=== PATIENT | female | born 1980 | race Two or more races ===

== ENCOUNTER 2020-12-29 15:31 | Emergency (ER) | payer MEDICAID ==
--- NOTE | 2020-12-29 17:14 | EDM.PDOC ---
ED HPI GENERAL MEDICAL PROBLEM - General Chief Complaint: Respiratory Problem Stated Complaint: FEVER Time Seen by Provider: 12/29/20 16:55 Source of Information: Reports: Patient History Limitations: Reports: No Limitations (e) - History of Present Illness INITIAL COMMENTS - FREE TEXT/NARRATIVE: Ms. Chavez is a very pleasant 40-year-old woman who now presents the ED stating that she developed a fever, generalized body aches, a nonproductive cough, and a headache yesterday afternoon. Her T-max has been 102.7, and her headache has been coming and going. She has had slight nausea and vomited once last night. She states that she has been alternating Tylenol and ibuprofen, and when that did not work to reduce her fever, she took a cool bath. Here in the ED, the patient's initial BP is found to be slightly elevated at 137/91, with tachycardia of 124 bpm. She is afebrile, saturating 100% on room air. She appears to be comfortable, in no acute distress. Prior to yesterday afternoon, the patient denies having a recent fever, chills, sore throat, ear pain, nasal or sinus congestion, cough, dyspnea, chest pain, palpitations, nausea, vomiting, constipation, diarrhea, abdominal pain, urinary symptoms, recent weight gain or weight loss, recent bloody bowel movements or black bowel movements, recent joint aches, headaches, or rashes. The patient's PCP is Soraida Arora NP, in [place]. She has not received a COVID vaccination. Generalized Pain Score (Numeric/FACES): 6 - Related Data Allergies Allergy/AdvReac Type Severity Reaction Status Date / Time No Known Allergies Allergy Verified 12/29/20 16:26 Home Meds: Home Meds . 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: Reports: Polycystic Ovaries Endocrine/Metabolic History: Reports: Hypothyroidism (untreated), Obesity/BMI 30+ - Past Surgical History Female Surgical History: Reports: Section (x 1), Other (See Below) (Left ovarian cystectomy) Oncologic Surgical History: Reports: Biopsy of Breast (left, benign) Dermatological Surgical History: Reports: Other (See Below) (Lipoma excision left flank) Social & Family History - Tobacco Use Tobacco Use Status *Q: Never Tobacco User - Alcohol Use Alcohol Use History: No - Recreational Drug Use Recreational Drug Use: No - Living Situation & Occupation Living situation: Reports: , with Significant Other (Boyfriend), with Family (Daughter) 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 ED EXAM, GENERAL - Physical Exam Exam: See Below Exam Limited By: No Limitations General Appearance: Alert, WD/WN, No Apparent Distress Eye Exam: Bilateral Eye: EOMI, Normal Inspection Ears: Normal External Exam, Hearing Grossly Normal Nose: Normal Inspection Throat/Mouth: Normal Inspection, Normal Lips, Normal Voice, No Airway Compromise Head: Atraumatic, Normocephalic Neck: Normal Inspection, Full Range of Motion Respiratory/Chest: No Respiratory Distress, Lungs Clear, Normal Breath Sounds, No Accessory Muscle Use. No: Decreased Breath Sounds, Crackles, Rhonchi, Wheezing, Stridor, Prolonged Expiration Cardiovascular: Normal Peripheral Pulses, Regular Rate, Rhythm, No Edema, No Gallop, No JVD, No Murmur, No Rub Peripheral Pulses: 3+: Radial (L), Radial (R) GI/Abdominal: Normal Bowel Sounds, Soft, Non-Tender, No Organomegaly, No Distention, No Abnormal Bruit, No Mass Back Exam: Normal Inspection, Full Range of Motion, NT Extremities: Normal Inspection, Normal Range of Motion, No Pedal Edema, Normal Capillary Refill Neurological: Alert, Oriented, Normal Cognition, No Motor/Sensory Deficits Psychiatric: Normal Affect Skin Exam: Warm, Dry, Intact, Normal Color, No Rash Course - Vital Signs Last Recorded V/S: Last Vital Signs Temp 36.9 C 12/29/20 16:31 Pulse 124 H 12/29/20 16:31 Resp BP 137/91 H 12/29/20 16:31 Pulse Ox 100 12/29/20 16:31 - Orders/Labs/Meds Orders: Active Orders 24 hr Category Date Time Status Vital Signs [RC] Q15M Care 12/29/20 18:36 Active Vital Signs [RC] Q15M Care 12/29/20 19:01 Active Chest 1V Frontal [CR] Stat Exams 12/29/20 17:08 Taken INFLUENZA A+B AG SCREEN [RM] Stat Lab 12/29/20 17:07 Ordered EPINEPHrine [Adrenalin] Med 12/29/20 18:36 Active 0.3 mg IM ASDIRECTED PRN EPINEPHrine [Adrenalin] Med 12/29/20 19:01 Active 0.3 mg IM ASDIRECTED PRN Famotidine [Pepcid] Med 12/29/20 18:36 Active 20 mg IVPUSH ASDIRECTED PRN Famotidine [Pepcid] Med 12/29/20 19:01 Active 20 mg IVPUSH ASDIRECTED PRN Sodium Chloride 0.9% [Saline Flush] Med 12/29/20 18:45 Active 30 ml FLUSH ASDIRECTED Sodium Chloride 0.9% [Saline Flush] Med 12/29/20 19:15 Active 30 ml FLUSH ASDIRECTED diphenhydrAMINE [Benadryl] Med 12/29/20 18:36 Active 50 mg IVPUSH ASDIRECTED PRN diphenhydrAMINE [Benadryl] Med 12/29/20 19:01 Active 50 mg IVPUSH ASDIRECTED PRN methylPREDNISolone Sod Succ [Solu-MEDROL] Med 12/29/20 18:36 Active 125 mg IVPUSH ASDIRECTED PRN methylPREDNISolone Sod Succ [Solu-MEDROL] Med 12/29/20 19:01 Active 125 mg IVPUSH ASDIRECTED PRN Isolation [COMM] Routine Oth 12/29/20 17:07 Ordered Medication Orders Diphenhydramine HCl (Diphenhydramine 50 Mg/Ml Sdv) 50 mg IVPUSH ASDIRECTED PRN PRN Reason: hypersensitivity reaction Diphenhydramine HCl (Diphenhydramine 50 Mg/Ml Sdv) 50 mg IVPUSH ASDIRECTED PRN PRN Reason: hypersensitivity reaction Epinephrine HCl (Epinephrine 1 Mg/Ml Sdv) 0.3 mg IM ASDIRECTED PRN PRN Reason: hypersensitivity reaction Epinephrine HCl (Epinephrine 1 Mg/Ml Sdv) 0.3 mg IM ASDIRECTED PRN PRN Reason: hypersensitivity reaction Famotidine (Famotidine 20 Mg/2 Ml Sdv) 20 mg IVPUSH ASDIRECTED PRN PRN Reason: hypersensitivity reaction Famotidine (Famotidine 20 Mg/2 Ml Sdv) 20 mg IVPUSH ASDIRECTED PRN PRN Reason: hypersensitivity reaction Methylprednisolone Sodium Succinate (Methylprednisolone Sodium Succinate 125 Mg/2 Ml Sdv) 125 mg IVPUSH ASDIRECTED PRN PRN Reason: hypersensitivity reaction Methylprednisolone Sodium Succinate (Methylprednisolone Sodium Succinate 125 Mg/2 Ml Sdv) 125 mg IVPUSH ASDIRECTED PRN PRN Reason: hypersensitivity reaction Sodium Chloride (Sodium Chloride 0.9% 10 Ml Syringe) 30 ml FLUSH ASDIRECTED ALEX Sodium Chloride (Sodium Chloride 0.9% 10 Ml Syringe) 30 ml FLUSH ASDIRECTED ALEX Labs: Laboratory Tests 12/29/20 12/29/20 12/29/20 Range/Units 16:30 17:32 17:32 WBC 4.43 (3.98-10.04) K/mm3 RBC 4.60 (3.98-5.22) M/mm3 Hgb 12.0 (11.2-15.7) gm/dl Hct 37.9 (34.1-44.9) % MCV 82.4 (79.4-94.8) fl MCH 26.1 (25.6-32.2) pg MCHC 31.7 L (32.2-35.5) g/dl RDW Std Deviation 39.5 (36.4-46.3) fL Plt Count 198 (182-369) K/mm3 MPV 10.4 (9.4-12.3) fl Neutrophils % (Manual) 86 H (40-60) % Band Neutrophils % 0 (0-10) % Lymphocytes % (Manual) 12 L (20-40) % Atypical Lymphs % 0 % Monocytes % (Manual) 2 (2-10) % Eosinophils % (Manual) 0 L (0.7-5.8) % Basophils % (Manual) 0 L (0.1-1.2) Platelet Estimate Adequate RBC Morph Comment Normal Sodium 140 (136-145) mEq/L Potassium 3.7 (3.5-5.1) mEq/L Chloride 104 (98-107) mEq/L Carbon Dioxide 24 (21-32) mEq/L Anion Gap 15.7 H (5-15) BUN 8 (7-18) mg/dL Creatinine 1.1 H (0.55-1.02) mg/dL Est Cr Clr Drug Dosing 64.92 mL/min Estimated GFR (MDRD) 56 (>60) mL/min BUN/Creatinine Ratio 7.3 L (14-18) Glucose 95 (70-99) mg/dL Calcium 8.4 L (8.5-10.1) mg/dL Total Bilirubin 0.3 (0.2-1.0) mg/dL AST 38 H (15-37) U/L ALT 25 (14-59) U/L Alkaline Phosphatase 55 (46-116) U/L C-Reactive Protein 3.0 H* (<1.0) mg/dL Total Protein 7.4 (6.4-8.2) g/dl Albumin 3.3 L (3.4-5.0) g/dl Globulin 4.1 gm/dL Albumin/Globulin Ratio 0.8 L (1-2) SARS-CoV-2 RNA (CATHI) Positive H (NEGATIVE) Meds: Medications Generic Name Dose Route Start Last Admin Trade Name Freq PRN Reason Stop Dose Admin Diphenhydramine HCl 50 mg 12/29/20 18:36 Diphenhydramine 50 Mg/Ml Sdv IVPUSH ASDIRECTED PRN hypersensitivity reaction Diphenhydramine HCl 50 mg 12/29/20 19:01 Diphenhydramine 50 Mg/Ml Sdv IVPUSH ASDIRECTED PRN hypersensitivity reaction Epinephrine HCl 0.3 mg 12/29/20 18:36 Epinephrine 1 Mg/Ml Sdv IM ASDIRECTED PRN hypersensitivity reaction Epinephrine HCl 0.3 mg 12/29/20 19:01 Epinephrine 1 Mg/Ml Sdv IM ASDIRECTED PRN hypersensitivity reaction Famotidine 20 mg 12/29/20 18:36 Famotidine 20 Mg/2 Ml Sdv IVPUSH ASDIRECTED PRN hypersensitivity reaction Famotidine 20 mg 12/29/20 19:01 Famotidine 20 Mg/2 Ml Sdv IVPUSH ASDIRECTED PRN hypersensitivity reaction Methylprednisolone Sodium Succinate 125 mg 12/29/20 18:36 Methylprednisolone Sodium Succinate 125 Mg/2 Ml Sdv IVPUSH ASDIRECTED PRN hypersensitivity reaction Methylprednisolone Sodium Succinate 125 mg 12/29/20 19:01 Methylprednisolone Sodium Succinate 125 Mg/2 Ml Sdv IVPUSH ASDIRECTED PRN hypersensitivity reaction Sodium Chloride 30 ml 12/29/20 18:45 Sodium Chloride 0.9% 10 Ml Syringe FLUSH ASDIRECTED ALEX Sodium Chloride 30 ml 12/29/20 19:15 Sodium Chloride 0.9% 10 Ml Syringe FLUSH ASDIRECTED ALEX Discontinued Medications Generic Name Dose Route Start Last Admin Trade Name Jeremy PRN Reason Stop Dose Admin Sodium Chloride 1,000 mls @ 999 mls/hr 12/29/20 17:44 12/29/20 17:50 Normal Saline IV 12/29/20 18:44 999 mls/hr ONETIME ONE Administration CASIRIVIMAB/IMDEVIMAB 10 ml/ 110 mls @ 220 mls/hr 12/29/20 18:36 12/29/20 20:04 Sodium Chloride IV 12/29/20 19:05 Not Given ONETIME ONE SOTROVIMAB 500 mg/ Sodium 108 mls @ 216 mls/hr 12/29/20 19:01 12/29/20 19:26 Chloride IV 12/29/20 19:30 216 mls/hr ONETIME ONE Administration - Re-Assessments/Exams Free Text/Narrative Re-Assessment/Exam: 12/29/20 17:08 A swab for the SARS-CoV-2 virus was obtained at triage. I have added an influenza A + B virus, along with a CBC, CMP, CRP, and chest x-ray. 12/29/20 18:26 Two-view chest radiograph appears to be grossly normal. The cardiac silhouette is within normal limits. No pulmonary vascular congestion. No pleural effusions. No focal infiltrate. No pneumothorax. Formal read per the Radiologist pending. 12/29/20 18:37 The patient's CBC is unremarkable. Her CMP is unremarkable. Her CRP is modestly elevated at 3.0. Her swab for the SARS-CoV-2 virus is positive. Her swab for influenza A + B viruses did not resolve. Based on the patient's BMI, she is a candidate for an infusion of the monoclonal antibody Regen-Cov. We discussed that at length, including that it is an emergency use authorization medication intended to decrease the likelihood of patients diagnosed with COVID-19 from developing severe symptoms or , and that it does not treat her current symptoms. I explained that Regen-Cov is still under investigation, that it is not fully FDA approved, and that the potential benefits and risks of the medication are not fully known. The patient was notified that if she receives Regen-Cov, that it may decrease her immune response to a COVID vaccination, should she decide to get it after she recovers from her current illness. I explained that there is a possibility that she could have an allergic reaction either during or after the infusion, as well as brief pain, bleeding, bruising of the skin, soreness, swelling, and possible infection at the infusion site. Other side effects could occur. I discussed that there are other potential treatment options that are currently not FDA approved to treat COVID-19. The patient was notified that the infusion takes about half an hour, after which she would be expected to remain in the ED for another hour to observe for possible side effects. She was offered the "Patient and caregiver [facility] Regen-Cov fact sheet" to read and review. All questions were answered. The patient expressed understanding, and would like to proceed with the infusion. 12/29/20 20:13 The patient received her infusion of Regen-Cov without incident. She still needs to wait about 40 minutes before she can be discharged home. I will prepare her discharge instructions now. Departure - Departure Time of Disposition: 20:55 Disposition: Home, Self-Care 01 Condition: Good Clinical Impression: COVID-19 - Discharge Information *PRESCRIPTION DRUG MONITORING PROGRAM REVIEWED*: Not Applicable *COPY OF PRESCRIPTION DRUG MONITORING REPORT IN PATIENT MICHAEL: Not Applicable Referrals: Soraida Arora NP [Ordering Only Provider] - Forms: ED Department Discharge Additional Instructions: You were seen in the emergency room after developing a fever, generalized body aches, a dry cough, a headache, and some nausea with slight vomiting. Work-up in the ER included several blood tests, a swab for the SARS-CoV-2 virus, and a chest x-ray. Your swab for the SARS-CoV-2 virus returned positive, indicating that you have COVID-19. Your CRP, a measure of inflammation, returned mildly elevated at 3.0, which is a good prognostic indicator that you will not likely suffer severe symptoms from COVID-19. You were treated with an infusion of the monoclonal antibody Regen-Cov (Regeneron) in the ER. This decreases the chance of your developing severe consequences from COVID-19. Stay adequately hydrated. You may take [id number] ibuprofen as needed for discomfort. As discussed, it is imperative that you strictly isolate until you tested negative for the virus. On average, that takes 10 days. We recommend that you get retested for the SARS-CoV-2 virus on 01/08/2021. If any other problems, please do not hesitate to return to the ER. Sepsis Event Note (ED) - Focused Exam Vital Signs: Vital Signs Temp Pulse BP Pulse Ox 12/29/20 16:31 36.9 C 124 H 137/91 H 100 - My Orders Last 24 Hours: My Active Orders 12/29/20 17:07 INFLUENZA A+B AG SCREEN [RM] Stat Isolation [COMM] Routine 12/29/20 17:08 Chest 1V Frontal [CR] Stat 12/29/20 18:36 Vital Signs [RC] Q15M EPINEPHrine [Adrenalin] 0.3 mg IM ASDIRECTED PRN Famotidine [Pepcid] 20 mg IVPUSH ASDIRECTED PRN diphenhydrAMINE [Benadryl] 50 mg IVPUSH ASDIRECTED PRN methylPREDNISolone Sod Succ [Solu-MEDROL] 125 mg IVPUSH ASDIRECTED PRN 12/29/20 18:45 Sodium Chloride 0.9% [Saline Flush] 30 ml FLUSH ASDIRECTED 12/29/20 19:01 Vital Signs [RC] Q15M EPINEPHrine [Adrenalin] 0.3 mg IM ASDIRECTED PRN Famotidine [Pepcid] 20 mg IVPUSH ASDIRECTED PRN diphenhydrAMINE [Benadryl] 50 mg IVPUSH ASDIRECTED PRN methylPREDNISolone Sod Succ [Solu-MEDROL] 125 mg IVPUSH ASDIRECTED PRN 12/29/20 19:15 Sodium Chloride 0.9% [Saline Flush] 30 ml FLUSH ASDIRECTED - Assessment/Plan Last 24 Hours: My Active Orders 12/29/20 17:07 INFLUENZA A+B AG SCREEN [RM] Stat Isolation [COMM] Routine 12/29/20 17:08 Chest 1V Frontal [CR] Stat 12/29/20 18:36 Vital Signs [RC] Q15M EPINEPHrine [Adrenalin] 0.3 mg IM ASDIRECTED PRN Famotidine [Pepcid] 20 mg IVPUSH ASDIRECTED PRN diphenhydrAMINE [Benadryl] 50 mg IVPUSH ASDIRECTED PRN methylPREDNISolone Sod Succ [Solu-MEDROL] 125 mg IVPUSH ASDIRECTED PRN 12/29/20 18:45 Sodium Chloride 0.9% [Saline Flush] 30 ml FLUSH ASDIRECTED 12/29/20 19:01 Vital Signs [RC] Q15M EPINEPHrine [Adrenalin] 0.3 mg IM ASDIRECTED PRN Famotidine [Pepcid] 20 mg IVPUSH ASDIRECTED PRN diphenhydrAMINE [Benadryl] 50 mg IVPUSH ASDIRECTED PRN methylPREDNISolone Sod Succ [Solu-MEDROL] 125 mg IVPUSH ASDIRECTED PRN 12/29/20 19:15 Sodium Chloride 0.9% [Saline Flush] 30 ml FLUSH ASDIRECTED
[2020-12-29] MEDS ORDERED: Sodium Chloride 0.9% 1,000 ML IV ONE (17:44)
[2020-12-29] MEDS ORDERED: methylPREDNISolone Sodium Succinate 125 MG/2 ML SDV IVPUSH PRN ×2 (18:36→19:01)
[2020-12-29] MEDS ORDERED: Famotidine 20 MG/2 ML SDV IVPUSH PRN ×2 (18:36→19:01)
[2020-12-29] MEDS ORDERED: diphenhydrAMINE 50 MG/ML SDV IVPUSH PRN ×2 (18:36→19:01)
[2020-12-29] MEDS ORDERED: EPINEPHrine 1 MG/ML SDV IM PRN ×2 (18:36→19:01)
[2020-12-29] MEDS ORDERED: Sodium Chloride 0.9% 10 ML Syringe FLUSH SCH ×2 (18:45→19:15)
--- NOTE | 2020-12-30 07:44 | CR ---
Chest: Frontal view of the chest was obtained. Comparison: No prior chest imaging is available. Heart size and mediastinum are normal. Lungs are clear with no acute parenchymal change. No acute osseous abnormality is appreciated. Impression: 1. Nothing acute is seen at frontal chest x-ray. Diagnostic code #1
== END 2020-12-29 21:01 | disposition home or self-care (01) ==
LOC: JD.ED 15:31
DX: U07.1 COVID-19 (principal); E66.9 Obesity, unspecified; Z68.33 Body mass index [BMI] 33.0-33.9, adult
CPT/HCPCS: 36415; 71045; 80053; 85007; 85027; 86140; 87635; 99283; J7030; M0247; Q0247; U0002

== ENCOUNTER 2021-02-27 12:52 | Emergency (ER) | payer MEDICAID ==
--- NOTE | 2021-02-27 13:39 | EDM.PDOC ---
ED HPI GENERAL MEDICAL PROBLEM - General Chief Complaint: General Stated Complaint: INSICION OPENING GREEN PUSS Time Seen by Provider: 02/27/21 13:05 Source of Information: Reports: Patient History Limitations: Reports: No Limitations - History of Present Illness INITIAL COMMENTS - FREE TEXT/NARRATIVE: The patient presents for a possible wound infection. The patient had a lump ectomy of her right breast done on February 09. She just saw him the other day and things were going good. There was a scab and it appeared to open up slightly. Today she noticed some greenish drainage and a little redness around the wound. She has no fever, chill, or pain. Onset: Gradual Duration: Day(s): Location: Reports: Other (right breast) Severity: Mild Improves with: Reports: None Worsens with: Reports: None Associated Symptoms: Reports: No Other Symptoms Breast Pain Score (Numeric/FACES): 1 - Related Data Allergies Allergy/AdvReac Type Severity Reaction Status Date / Time No Known Allergies Allergy Verified 12/29/20 16:26 Home Meds: Home Meds cephALEXin [Keflex] 500 mg PO QID #28 cap 02/27/21 [Rx] Past Medical History - Past Health History Medical/Surgical History: Denies Medical/Surgical History Cardiovascular History: Reports: Arrhythmia Respiratory History: Reports: Sleep Apnea 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 Endocrine/Metabolic History: Reports: Hypothyroidism, Obesity/BMI 30+ - Infectious Disease History Infectious Disease History: Reports: None - Past Surgical History Female Surgical History: Reports: Section, Other (See Below) Oncologic Surgical History: Reports: Biopsy of Breast Social & Family History - Tobacco Use Tobacco Use Status *Q: Never Tobacco User - Caffeine Use Caffeine Use: Reports: Coffee - Recreational Drug Use Recreational Drug Use: No - Living Situation & Occupation Living situation: Reports: , with Significant Other (Boyfriend), with Family (Daughter) 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) ED ROS GENERAL - Review of Systems Review Of Systems: See Below Constitutional: Reports: No Symptoms HEENT: Reports: No Symptoms Respiratory: Reports: No Symptoms Cardiovascular: Reports: No Symptoms Endocrine: Reports: No Symptoms GI/Abdominal: Reports: No Symptoms : Reports: No Symptoms Skin: Reports: Other (drainage from incision to the right breast) ED EXAM, GENERAL - Physical Exam Exam: See Below Exam Limited By: No Limitations General Appearance: Alert, No Apparent Distress Ears: Normal External Exam Nose: Normal Inspection Head: Atraumatic, Normocephalic Neck: Normal Inspection Respiratory/Chest: No Respiratory Distress Skin Exam: Other (incision site under right breast has some greenish drainage and mild erythema around the wound) Course - Vital Signs Last Recorded V/S: Last Vital Signs Temp 98.6 F 02/27/21 13:17 Pulse 80 02/27/21 13:17 Resp 20 02/27/21 13:17 BP 157/108 H 02/27/21 13:17 Pulse Ox 98 02/27/21 13:17 - Re-Assessments/Exams Free Text/Narrative Re-Assessment/Exam: 02/27/21 13:39 I will get her on some keflex. Departure - Departure Time of Disposition: 13:40 Disposition: Home, Self-Care 01 Condition: Good Clinical Impression: Incisional infection - Discharge Information *PRESCRIPTION DRUG MONITORING PROGRAM REVIEWED*: Not Applicable *COPY OF PRESCRIPTION DRUG MONITORING REPORT IN PATIENT MICHAEL: Not Applicable Prescriptions: cephALEXin [Keflex] 500 mg PO QID #28 cap Referrals: Wilbert Mcguire MD [Primary Care Provider] - 1 Week Additional Instructions: Take the keflex 4 times per day for 7 days. Clean the wound with warm soapy water 2 times per day and apply antibiotics after. Do that for about 5 days and then let it dry. Follow up with Dr Mcguire within a week. Please return if you are worse. Sepsis Event Note (ED) - Focused Exam Vital Signs: Vital Signs Temp Pulse Resp BP Pulse Ox 02/27/21 13:17 98.6 F 80 20 157/108 H 98
== END 2021-02-27 14:31 | disposition home or self-care (01) ==
LOC: SUPCPDRO 12:52 → JD.ED 12:52
DX: T81.40XA Infection following a procedure, unspecified, initial encounter (principal); E66.9 Obesity, unspecified; Z68.33 Body mass index [BMI] 33.0-33.9, adult
CPT/HCPCS: 99282; 99283